=== PATIENT | female | born 2000 | race Two or more races ===

== ENCOUNTER 2020-10-07 16:05 | Emergency (ER) | payer BC, MEDICAID ==
[~2020-10-07] VITALS: Ht 160 cm; Wt 72.2 kg
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
[2020-10-07] MEDS ORDERED: ONDANSETRON 2MG/ML, 2ML ONE (16:45)
[2020-10-07] MEDS ORDERED: MORPHINE SULFATE 4 MG/ML, 1ML ONE (16:45)
[2020-10-07] MEDS ORDERED: MORPHINE SULFATE 4 MG/ML, 1ML IVPush PRN (17:00)
[2020-10-07] MEDS ORDERED: SODIUM CHLORIDE 0.9% 1,000ML IV ONE (17:00)
[2020-10-07] MEDS ORDERED: ONDANSETRON 2MG/ML, 2ML IVPush ONE (17:00)
--- NOTE | 2020-10-07 17:03 | NUR ---
iv access obtained. pt medicated per order. pt states positive relief of symptoms. pt given call light and encouraged to call if pain returns. mother remains at bedside.
--- NOTE | 2020-10-07 17:25 | NUR ---
heading to ct
[2020-10-07 17:50] LABS: BASOPHILS % (AUTO) 0 % (0-1); EOSINOPHILS % (AUTO) 0 % (1-7); LYMPHOCYTES % (AUTO) 7 % (22-44); MEAN CORPUSCULAR HEMOGLOBIN 31.4 pg (27.0-34.8); MEAN CORPUSCULAR HGB CONC 33.7 g/dL (32.4-35.8); MEAN PLATELET VOLUME 8.7 fL (7.4-10.4); MONOCYTES % (AUTO) 5 % (2-9); NEUTROPHILS % (AUTO) 88 % (42-75); PLATELET COUNT 292 x10^3/uL (130-400); RED BLOOD COUNT 4.04 x10^6/uL (3.82-5.3); RED CELL DISTRIBUTION WIDTH 12.4 % (9.6-15.2)
[2020-10-07 17:53] LABS: ALBUMIN 3.1 g/dL (3.4-5.0); ANION GAP 9 mmol/L (5-15); CALCIUM 7.8 mg/dL (8.5-10.1); CHLORIDE 112 mmol/L (98-107); CREATININE 0.62 mg/dL (0.55-1.02)
--- NOTE | 2020-10-07 17:55 | NUR ---
pt back from ct.
[2020-10-07 18:36] LABS: MD SCAN
[2020-10-07 19:01] VITALS: BP 136/64
--- NOTE | 2020-10-07 19:05 | NUR ---
pt in bed dressing done, dc piv. dc orders in waiting for angelika.
--- NOTE | 2020-10-07 19:10 | NUR ---
CALLED [facility] FOR [facility].
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
== END 2020-10-07 19:47 | disposition home or self-care (01) ==
LOC: ED 19:13
DX: S39.012A Strain of muscle, fascia and tendon of lower back, initial encounter (principal); V89.2XXA Person injured in unspecified motor-vehicle accident, traffic, initial encounter; Y93.89 Activity, other specified; Y92.89 Other specified places as the place of occurrence of the external cause; Y99.8 Other external cause status
CPT/HCPCS: 36415; 72131; 80048; 82040; 85025; 96361; 96374; 96375; 99285; J2270; J2405; J7030